=== PATIENT | male | born 1955 | race Caucasian/White ===

== ENCOUNTER → 2016-10-15 | Outpatient (CLI) | payer OTHER ==
[~2016-10-15] MED LIST: KEFLEX 500MG.500 MG PO; MULTI VITAMINS1 TA1 PO; VITAMIN C1000 M1 PO
[2016-10-15 12:44] LABS: HEMOGLOBIN 16.9 g/dL (14.1-18.0); LYMPH # 1.8 K/mm3 (0.7-4.5); LYMPH % 35.5 % (10-50)
[2016-10-15 14:19] LABS: BUN 24 mg/dL (7-18)
[2016-10-15 14:20] LABS: GFR (ESTIMATED) 98 ML/MIN (>60)
== END ==
LOC: LAB 11:47
PROVIDERS: Nurse Practitioner Acute Care
DX: B18.2 Chronic viral hepatitis C (principal)

== ENCOUNTER → 2017-01-21 | Outpatient (CLI) | payer OTHER ==
--- NOTE | 2017-01-21 15:51 | RADIOLOGY REPORT PS360 ---
EXAM: CERVICAL SPINE 4 OR 5 VIEWS HISTORY: NECK PAIN ORDERING PHYSICIAN: Pippa Rich APRN PATIENT AGE: 61 years COMPARISON: None FINDINGS: Normal alignment. No fracture or dislocation. No lytic or blastic change. There is degenerative disc disease at C4-C5. There is 2 mm anterolisthesis of C3. No significant foraminal narrowing. No prevertebral soft tissue swelling. IMPRESSION: Degenerative disc disease C4-C5
--- NOTE | 2017-01-21 15:52 | RADIOLOGY REPORT PS360 ---
SINUS SERIES 3 VIEWS CLINICAL INDICATION: ALLERGY ORDERING PHYSICIAN: Pippa Rich APRN PATIENT AGE: 61 years COMPARISON: None FINDINGS: 3 views obtained. No air-fluid levels or significant mucosal thickening evident. No bony anomalies apparent. IMPRESSION: Negative paranasal sinuses
== END ==
LOC: RAD 15:09
DX: M54.2 Cervicalgia (principal); T78.40XA Allergy, unspecified, initial encounter